=== PATIENT | male | born 1945 | race Caucasian/White ===

== ENCOUNTER → 2017-12-26 | Outpatient (CLI) | payer OTHER ==
--- NOTE | 2018-01-09 11:07 | CODING QUERY NO DIAGNOSIS ---
: 1945 TREATMENT RENDERED WITHOUT A DIAGNOSIS To promote full compliance with coding requirements relating to patient care, physician participation is requested in all cases of enamel cracker uncertainty. Please assist us with providing a diagnosis/symptom for the test(s) below: A diagnosis/symptom was not documented on your Order. A valid diagnosis/symptom is required to bill all insurances. Please remember that we are unable to code a diagnosis of rule out, probable, possible, questionable, or suspected. Tests that require a diagnosis: DOS: 12/26/17 * ECG ROUTINE DIAGNOSIS: Provider Signature: Date: Thank you Marya Erazo Health Information Management Once completed, please kindly fax back to [phone] For questions please call [phone]
== END | disposition home or self-care (01) ==
LOC: C.CPL 10:40
DX: G62.9 Polyneuropathy, unspecified (principal)

== ENCOUNTER → 2017-12-29 | Day surgery (SDC) | payer OTHER ==
[2017-12-01 08:13] VITALS: Ht 185.4 cm; Wt 99.1 kg
[~2017-12-29] VITALS: Ht 185.4 cm; Wt 99.1 kg
[~2017-12-29] MED LIST: ATROPINE SULFATE 0.1 MG/ML 5ML SYR IV PRN; CEFAZOLIN 2000MG IV PUSH 15 ML IV SCH; DEXAMETHASONE SOD INJ 4 MG/ML VIAL ONE; EpHEDrine SULFATE INJ 50 MG/ML AMP IV PRN; EpHEDrine SULFATE INJ 50 MG/ML AMP ONE; EpINEphrine INJ 1MG/ML AMP 1 MG/ML AMP ONE; FENTANYL CITRATE INJ 50 MCG/1 ML 2 ML VIAL IV PRN; FENTANYL CITRATE INJ 50 MCG/1 ML 2 ML VIAL ONE; HYDROCODONE/ACETAMIN 5/325MG TAB PO PRN; LIDOCAINE 4% MPF SOAK 5 ML = 1 DOSE TOP ONE; LIDOCAINE/EPINEPHRINE 1% 20 ML VIAL ONE; MIDAZOLAM HCL 1 MG/ML 2ML VIAL ONE; ONDANSETRON INJ 2 MG/ML 2 ML VIAL IV PRN; ONDANSETRON INJ 2 MG/ML 2 ML VIAL ONE; OXYMETAZOLINE HCL 0.05% NA SPR 15 ML BTL PRN; OXYMETAZOLINE HCL 0.05% NA SPR 15 ML BTL SCH; PROPOFOL IV EMULSION 10 MG/ML 20 ML VIAL IV ONE; ROCURONIUM BROMIDE 10 MG/ML 5 ML VIAL IV ONE; SODIUM CHLORIDE 0.9% INJ 10 ML VIAL ONE; TRIAMCINOLONE ACET 40 MG/ML VIAL ONE
[2017-12-29] MEDS: LACTATED RINGER'S 1000ML 1,000 ML IV SCH ×2 (11:19→15:27)
--- NOTE | 2017-12-29 13:42 | History and Physical: Surg Cnt ---
History & Physical Date Dec 29, 2017. Chief Complaint NASAL POLYPS History of Present Illness The patient is a 72 year old male with complaints of NASAL POLYPOSIS AND CHRONIC SINUSITIS WITH SYMPTOMS DESPITE MAXIMAL MEDICAL RX. Past Medical/Surgical History PMH: ABOVE, PERIPHERAL NEUROPATHY PSH: S/P APPY Additional History Hepatic Disease: No Endocrine Disorder: No Kidney Disease: No Hypertension: No Heart Disease: No Bleeding Tendencies: No Infectious Diseases: No Allergies Coded Allergies: No Known Allergies (Unverified , 12/29/17) Home Medications No Active Prescriptions or Reported Meds Physical Examination Skin: warm/dry, no rash Eyes: normal inspection, EOMI, sclerae normal ENT: + pertinent finding (L>R NASAL POLYPOSIS AND B ITH) Head: normocephalic, atraumatic Neck: supple, no adenopathy, trachea midline Respiratory/Chest: lungs clear, normal breath sounds, no respiratory distress Cardiovascular: regular rate, rhythm, no edema, no murmur Neurologic/Psych: no motor/sensory deficits, alert, normal reflexes, oriented x 3 Diagnosis CPRS, B ITH Plan of Treatment IMAGE-GUIDED B FESS AND INFERIOR TURBINATE REDUCTION, POSSIBLE SEPTOPLASTY
--- NOTE | 2017-12-29 14:46 | [facility] Operative Report ---
Operative Report Operative Date Dec 29, 2017. Pre-Operative Diagnosis Chronic Sinusitis, Nasal Polyposis, Bilateral Inferior Turbinate Hypertrophy Post-Operative Diagnosis Same Procedure(s) Performed Bilateral Image Guided Endoscopic Sinus Surgery, Bilateral Inferior Turbinate Reduction Surgeon Dr. Simeon Calender Operator Helper Surgeon(s) None Estimated Blood Loss 25ML Findings 1. SEVERE L>R SINONASAL POLYPOSIS 2. PURULENCE WITHIN LEFT MAXILLARY AND FRONTAL SINUSES 3. BILATERAL INFERIOR TURBINATE HYPERTROPHY Specimens A. Left Nasal Polyp B. Right Nasal Polyp Anesthesia Type General I attest to the content of the Intraoperative Record and any orders documented therein. Any exceptions are noted below.
--- NOTE | 2017-12-29 14:50 | Discharge Instructions ---
Discharge Instructions Date of Service Dec 29, 2017. Admission Reason for Admission: Nasal Polyps, Peripheral Neuropathy Discharge Discharge Diagnosis / Problem: SAME Discharge Goals Goal(s): Therapeutic intervention Activity Recommendations Activity Limitations: as noted below LIGHT ACTIVITY FOR 2 WEEKS; NO DRIVING WHILE ON NORCO . Current Hospital Diet Patient's current hospital diet: Discharge Diet Recommended Diet: Regular Diet Procedures Procedures Performed: Bilateral Image Guided Endoscopic Sinus Surgery, Bilateral Inferior Turbinate Reduction Pending Studies Studies pending at discharge: no Medical Emergencies . Who to Call and When: Medical Emergencies: If at any time you feel your situation is an emergency, please call 911 immediately. . Non-Emergent Contact Non-Emergency issues call your: Surgeon . . "Provider Documentation" section prepared by Feliciano Simeon. .
--- NOTE | 2017-12-29 15:25 | Anesthesia Progress Nt - [facility] ---
Anesthesia Post Op Note Date & Time Dec 29, 2017 at 15:25 Vital Signs Pain Intensity: 0 Vital Signs Past 12 Hours Date Time Temp Pulse Resp B/P (MAP) Pulse Ox O2 Delivery O2 Flow Rate FiO2 12/29/17 14:55 36.7 73 16 135/78 97 Room Air 12/29/17 11:00 36.7 64 18 119/80 (93) 96 Room Air Notes Mental Status: alert / awake / arousable, participated in evaluation Pt Amnestic to Procedure: Yes Nausea / Vomiting: adequately controlled Pain: adequately controlled Airway Patency, RR, SpO2: stable & adequate BP & HR: stable & adequate Hydration State: stable & adequate Anesthetic Complications: no major complications apparent
[2017-12-29 15:38] VITALS: TEMP 36.5
--- NOTE | 2017-12-29 15:48 | OPERATIVE REPORT ---
DATE OF OPERATION: 12/29/2017 PREOPERATIVE DIAGNOSES: 1. Left greater than right sinonasal polyposis. 2. Bilateral inferior turbinate hypertrophy. POSTOPERATIVE DIAGNOSES: 1. Left greater than right sinonasal polyposis. 2. Bilateral inferior turbinate hypertrophy. PROCEDURES: Image guided bilateral endoscopic sinus surgery consisting of: 1. Bilateral maxillary antrostomies. 2. Bilateral complete ethmoidectomies. 3. Bilateral balloon sinuplasty assisted frontal sinusotomies. 4. Bilateral sphenoidotomies. 5. Bilateral inferior turbinate outfracture and turbinoplasty. SURGEON: Dr. Simeon. ANESTHESIA: General endotracheal. ESTIMATED BLOOD LOSS: 25 mL. FINDINGS: 1. Severe left greater than right sinonasal polyposis with nasal polyps completely filling the left nasal cavity and approximately 50% of the right nasal cavity. 2. Purulence within the left maxillary and frontal sinuses. 3. Polyposis involving all of the paranasal sinuses bilaterally. 4. Bilateral inferior turbinate hypertrophy. SPECIMENS: Left and right nasal polyps for permanent pathological assessment. COMPLICATIONS: None. INDICATIONS FOR THE PROCEDURE: The patient is a 72-year-old male with the above-mentioned history, which has been refractory to maximal medical therapy including systemic antibiotics and steroids. Posttreatment fusion CT scan of the sinuses revealed pansinusitis along with bilateral inferior turbinate hypertrophy. He presents for the above-mentioned procedures on an outpatient elective basis. DESCRIPTION OF PROCEDURE: After informed consent had been obtained from the patient, the patient wheeled to the operating room and placed on the operating table in the supine position. Monitors were placed. After induction of general endotracheal anesthesia, the patient was prepped in the usual fashion for image guided endoscopic sinus surgery. The Applause fusion headset was placed over the forehead and was registered, verified, and calibrated and used for the entire case, but primarily the frontal and sphenoid sinus portions of the case. Lidocaine and epinephrine pledgets were placed in the bilateral nasal cavities and pressure applied. Left-sided pledget was removed. There was a large nasal polyp completely filling the left nasal cavity. This was injected with 1% lidocaine with 1:100,000 epinephrine. The right-sided pledget was removed. On this side, there was a polyp filling approximately 50% of the nasal cavity. This was likewise injected with 1% lidocaine with 1:100,000 epinephrine. Straight Eyad-Cut forceps was used to remove a portion of the left and right nasal polyps, which were sent off for permanent pathological assessment. A pledget was then placed into the right nasal cavity. A nasal polypectomy was then performed using powered instrumentation and image guidance. The nasal cavity was then opened after removal of all of the nasal polyp using powered instrumentation. The natural ostium of the maxillary sinus was occluded by polypoid tissue. An uncinatectomy was performed using a freer elevator, straight Eyad-Cut forceps, and powered instrumentation. The natural ostium of the maxillary sinus was identified and this was enlarged anteriorly, inferiorly, and posteriorly using backbiting forceps and powered instrumentation. There was extensive purulence within the left maxillary sinus, which was completely evacuated. A complete ethmoidectomy was then performed using powered instrumentation. Of note, there were polyps completely filling the left ethmoid cavity. Using a frontal sinus suction, the left frontal sinus was cannulated and there was purulence within the left frontal sinus, which was also suctioned. Using a frontal sinus balloon, it was inflated to 12 atmospheres of pressure in 3 different locations to dilate the left frontal recess. Polypoid tissue was removed using powered instrumentation under image guidance. A transnasal approach to the sphenoid sinus was then undertaken and the left sphenoid sinus was entered. The medial and inferior aspect of the sinus ostia was enlarged using powered instrumentation. A pledget was then placed into the left ethmoid cavity. The right side was then addressed in a similar fashion with similar intraoperative findings of nasal polyposis and polyposis within the sinuses. On this side, there was no purulence within any of the sinuses. There was extent of polyposis and sinonasal disease was not as significant as the left hand side, but still quite significant overall. A Bethea elevator was then used to infracture and subsequently outfracture the inferior turbinates bilaterally. The inferior turbinates were injected with 1% lidocaine with 1:100,000 epinephrine. A 2.0-mm turbinate blade using powered instrumentation was then used to perform bilateral inferior turbinoplasties in the submucosal fashion. The sinonasal cavities were then suctioned. Stammberger nasal dressing mixed with Kenalog 40 mg per 1 mL was then injected into the ethmoid cavity/middle meati bilaterally. An orogastric tube was placed and the stomach suctioned free of air and stomach contents. This marked the end of the case. The patient tolerated the procedure well. There were no apparent complications. The patient was extubated and transferred to recovery room in stable condition. I attest to the content of the Intraoperative Record and any orders documented therein. Any exception s are noted below.
[2017-12-29 16:23] VITALS: BP 128/89; PULSE 74; O2SAT 95
== END | disposition home or self-care (01) ==
LOC: X.SURG 10:42
DX: J33.9 Nasal polyp, unspecified (principal); J34.3 Hypertrophy of nasal turbinates; J32.9 Chronic sinusitis, unspecified; Z90.89 Acquired absence of other organs